=== PATIENT | female | born 1955 | race Caucasian/White ===

== ENCOUNTER 2019-06-27 00:17 | Day surgery (SDC) | payer MEDICARE, SELFPAY ==
[2019-06-21 13:05] VITALS: BMI 29.2
[2019-06-27 09:35] VITALS: BP 138/103; PULSE 118; RESP 16; TEMP 37.1; O2SAT 99
[2019-06-27] MEDS: LACTATED RINGERS 1,000 ML 150 ML IV CONT (09:50)
--- NOTE | 2019-06-27 10:18 | WPDANESEPPF ---
Anes - Initial Pre Proc Eval Procedure: Operation Date: 06/27/19 10:30 Proposed Procedures p Screening Colonoscopy - Billy Azevedo MD Date/Time: 06/27/19 10:18 Surgeon: Billy Azevedo MD Pre Op Diagnosis: neoplasm screening Patient Data Age: 63 Gender: F Height: 5 ft 4 in Weight: 75.3 kg Last Vital Signs Temp 98.7 F 06/27/19 09:35 Pulse 118 H 06/27/19 09:35 Resp 16 06/27/19 09:35 BP 138/103 H 06/27/19 09:35 Pulse Ox 99 06/27/19 09:35 Allergies Allergy/AdvReac Type Severity Reaction Status Date / Time Penicillins Allergy Unknown rash Verified 06/27/19 09:35 Home Medications Medication Instructions Recorded Confirmed Type atorvastatin 20 mg tablet 20 mg PO DAILY #90 tablet 05/24/19 06/27/19 Rx Patient hx anesthesia problems: none Family hx anesthesia problems: none PMFSH Past Medical History Medical History (System 05/22/19 @ 16:56 by Belen Sanon) Hx of ectopic Hyperlipidemia Normal colonoscopy (~2009) Family History Family History (System 05/22/19 @ 16:56 by Belen Sanon) Sibling Hypertension Father Lung cancer Diabetes mellitus Mother Parkinsons Grandparent Diabetes mellitus Sibling Hypertension Mother Family history of Parkinson's disease Patient's mother is Father Family history of diabetes mellitus in first degree relative Family history of lung cancer, Onset Age: 82 Patient's father is Grandparent Family history of type 2 diabetes mellitus Social History Social History (System 05/22/19 @ 16:56 by Belen Sanon) Smoking status: Never smoker Second hand tobacco smoke exposure: No Alcohol intake: current Substance use type: does not use Gender identity (if verbalized by the patient): Female Anes - Eval Final PreProcedure Day of Procedure 06/27/19 10:18 Patient weight: normal Heart: regular rate and rhythm Lungs: clear to auscultation Airway: Mallampati scale class II Neurological: alert and oriented Last oral intake: >/= 8 hours ASA classification: II Emergent: no Anesthetic plan: proceed Anesthesia type and monitoring: general GIVS and standard monitoring Informed Consent: The patient's anesthetic plan and its attendant risks and benefits were discussed with the patient/family/POA. Questions were solicited and answers provided to the satisfaction of the patient/family/POA.
--- NOTE | 2019-06-27 10:28 | PM.HPGS ---
History of Present Illness History of Present Illness Consent: Risks, benefits, and alternatives have been discussed and questions answered. Patient agrees to proceed with procedure. Chief complaint: neoplasm screening Narrative: Josey Toledo is a 63 year old female here for screening colonoscopy, last one about 10 years ago Review of Systems Constitutional: Constitutional: Denies headache(s) and Denies weakness Eyes: Eyes: Denies blurry vision ENT: Reports Normal hearing present, Denies headache(s) and Denies neck pain Cardiovascular: Cardiovascular: Denies chest pain and Denies dyspnea Respiratory: Respiratory: Denies dyspnea Gastrointestinal: Gastrointestinal: Reports no additional gastrointestinal complaints Genitourinary: Genitourinary: Denies dysuria Musculoskeletal: Musculoskeletal: Denies neck pain Integumentary/Breasts: Skin/Breast: Denies dry skin Neurologic: Reports Normal hearing present, Denies headache(s) and Denies weakness Psychiatric: Psychiatric: Denies anxiety Endocrine: Endocrine: Denies change in body appearance Hematologic/Lymphatic: Hematologic/Lymphatic: Denies easy bleeding Allergic/Immunologic: Allergic/Immunologic: Denies urticaria PMFSH Past Medical History Medical History (Updated 06/27/19 @ 10:28 by Billy Azevedo MD) Colon cancer screening Hx of ectopic Hyperlipidemia Normal colonoscopy (~2009) Family History Family History (System 05/22/19 @ 16:56 by Belen Sanon) Sibling Hypertension Father Lung cancer Diabetes mellitus Mother Parkinsons Grandparent Diabetes mellitus Sibling Hypertension Mother Family history of Parkinson's disease Patient's mother is Father Family history of diabetes mellitus in first degree relative Family history of lung cancer, Onset Age: 82 Patient's father is Grandparent Family history of type 2 diabetes mellitus Social History Social History (System 05/22/19 @ 16:56 by Belen Sanon) Smoking status: Never smoker Second hand tobacco smoke exposure: No Alcohol intake: current Substance use type: does not use Gender identity (if verbalized by the patient): Female Meds Home Medications and Allergies Home Medications Medication Instructions Recorded Confirmed Type atorvastatin 20 mg tablet 20 mg PO DAILY #90 tablet 05/24/19 06/27/19 Rx Allergies Allergy/AdvReac Type Severity Reaction Status Date / Time Penicillins Allergy Unknown rash Verified 06/27/19 09:35 Vital Signs Vital Signs - 24 hr 03/11/20 09:35 Temperature 98.7 F Pulse Rate 118 H Respiratory Rate 16 Blood Pressure 138/103 H Pulse Oximetry 99 Exam Const: General: comfortable and no acute distress HENMT: General nose exam: Normal nares present Eyes: General: appearance normal, both eyes and all related structures Neck: Neck: no JVD Resp: Auscultation: clear to auscultation bilaterally Cardio: Rate: regular rate Rhythm: regular rhythm GI: Inspection: non-distended GI Palp: Yes Soft to palpation Skin: General skin exam: normal color Neuro: General: gait normal Speech: normal speech Extrem: General: normal to inspection Psych: Mental Status: mental status grossly normal Assessment and Plan Assessment and plan (1) Colon cancer screening: Code(s): Z12.11 - Encounter for screening for malignant neoplasm of colon Status: Acute Assessment and Plan: will proceed with colonoscopy
[2019-06-27 11:00] VITALS: BP 109/74; PULSE 88; RESP 16; O2SAT 100
[2019-06-27 11:10] VITALS: BP 111/67; PULSE 79; RESP 16; O2SAT 100
== END 2019-06-27 11:32 | disposition home or self-care (01) ==
PROVIDERS: PCP Family Medicine; Visit Provider Internal Medicine Gastroenterology
PROC: 0DJD8ZZ Inspection of Lower Intestinal Tract, Via Natural or Artificial Opening Endoscopic (ICD-10-PCS; CPT 45378; principal; 2019-06-27 10:30)
DX: Z12.11 Encounter for screening for malignant neoplasm of colon (principal); D12.2 Benign neoplasm of ascending colon; D12.5 Benign neoplasm of sigmoid colon; K57.30 Diverticulosis of large intestine without perforation or abscess without bleeding; K64.8 Other hemorrhoids; E78.5 Hyperlipidemia, unspecified
CPT/HCPCS: 45385; 88305; J2704; J7120